=== PATIENT | male | born 1945 | race Caucasian/White ===

== ENCOUNTER → 2024-09-17 | Day surgery (SDC) | payer MEDICARE, MEDICAID ==
[~2024-09-17] VITALS: Ht 175.3 cm; Wt 72.6 kg
[~2024-09-17] MED LIST: APIX5TAB PO; ASPI-1497 PO; ATOR10TA PO; ATOR40TA70 PO; BACITRACIN 14GM TUBE TOP ONE; BUPIVACAINE HCL/PF 0.5% (5MG/ML) 10ML ONE; CARV3.1242 PO; CEFAZOLIN SODIUM 1000MG/VIAL ONE; CYAN250010 PO; EMPA10TA PO; EPHEDRINE SULFATE 50MG/ML VIAL ONE; FENTANYL CITRATE/PF 50MCG/ML 2ML VIAL ONE; FERR325T6 PO; GABA-1180 PO; GENTAMICIN SULF 40MG/ML 2ML VIAL ONE; HYDROCODONE/ACETAMINOPHEN 10/325MG TABLET PO PRN; HYDROMORPHONE HCL/PF 1MG/ML INJ IV PRN; INSU100I28 SQ; LEVO75TA7 PO; LIDOCAINE HCL 1% 10 MG/ML 10ML VIAL ONE; MIDAZOLAM HCL 2 MG/2 ML VIAL ONE; MULT-622 PO; NALOXONE HCL 0.4MG/ML VIAL IV PRN; NATE120T9 PO; ONDANSETRON HCL 4MG/2ML INJ IV PRN; ONDANSETRON HCL 4MG/2ML INJ ONE; PANT40TA51 PO; PHENYLEPHRINE HCL 10MG/ML 1ML IV ONE; POLYMYXIN B SULFATE 500000 UNITS/VIAL ONE; PROPOFOL 200MG/20ML VIAL IV ONE; TRAM50TA3 PO; VANCOMYCIN HCL 1GM VIAL ONE
[2024-09-17] MEDS: SODIUM CHLORIDE 0.9% 1,000 ML IV SCH (07:04)
== END | disposition home or self-care (01) ==
LOC: OR 05:53
PROVIDERS: ATTEND Podiatrist Foot & Ankle Surgery
DX: M20.12 Hallux valgus (acquired), left foot (principal); M19.072 Primary osteoarthritis, left ankle and foot; L97.529 Non-pressure chronic ulcer of other part of left foot with unspecified severity; Z98.890 Other specified postprocedural states; Z79.899 Other long term (current) drug therapy; Z79.4 Long term (current) use of insulin; Z79.82 Long term (current) use of aspirin
CPT/HCPCS: 28110; 82962; 87075; 87070; 87186; 87205; 87077; 88311; 88304; 73630; J3010; J0665; J0690; J3490 ×2; J1580; J2003; J2250; J2405; J2704; J3370; A4663